=== PATIENT | female | born 1945 | race Caucasian/White ===

== ENCOUNTER → 2023-06-17 09:16 | Outpatient (REF) | payer MEDICARE, OTHER, SELFPAY | LOC: RAD 09:16 | PROVIDERS: ATTENDING PHYSICIAN Surgery Vascular Surgery; FAMILY PHYSICIAN Nurse Practitioner Adult Health | DX: I73.9 Peripheral vascular disease, unspecified (principal); K55.1 Chronic vascular disorders of intestine | CPT/HCPCS: 93923; 93925; 93975; 93978 ==

== ENCOUNTER → 2024-07-06 06:39 | Outpatient (REF) | payer MEDICARE, OTHER, SELFPAY | LOC: RAD 06:39 | PROVIDERS: ATTENDING PHYSICIAN Registered Nurse; FAMILY PHYSICIAN Physician Assistant Medical | DX: I73.9 Peripheral vascular disease, unspecified (principal); K55.1 Chronic vascular disorders of intestine | CPT/HCPCS: 93922; 93925; 93975; 93978 ==